=== PATIENT | female | born 1980 | race African-American/Black ===

== ENCOUNTER → 2019-01-29 | Outpatient (CLI) | payer OTHER | LOC: MC.RAD 12:52 | DX: Z12.31 Encounter for screening mammogram for malignant neoplasm of breast (principal); N63.32 Unspecified lump in axillary tail of the left breast ==

== ENCOUNTER → 2019-02-04 | Outpatient (CLI) | payer OTHER | LOC: MC.RAD 14:00 | DX: N60.02 Solitary cyst of left breast (principal) ==

== ENCOUNTER → 2020-02-04 | Outpatient (CLI) | payer OTHER | LOC: MC.RAD 14:00 | DX: Z12.31 Encounter for screening mammogram for malignant neoplasm of breast (principal) ==

== ENCOUNTER → 2021-05-04 | Outpatient (CLI) | payer OTHER | LOC: MC.RAD 10:18 | DX: Z12.31 Encounter for screening mammogram for malignant neoplasm of breast (principal) ==